=== PATIENT | female | born 1930 | race Caucasian/White ===

== ENCOUNTER 2016-11-13 18:06 | Emergency (ER) | payer MEDICARE ==
[2016-11-13 15:20] LABS: ALBUMIN SERUM 4.8 g/dL (3.5-5.0); ALKALINE PHOSPHATASE 65 U/L (32-92); ALT (SGPT) 8 U/L (10-40); AST (SGOT) 20 U/L (10-42); BASOPHIL% 0.8 % (0-2.5); BILIRUBIN, DIRECT 0.2 mg/dL (0.0-0.2); BILIRUBIN,INDIRECT 0.4 mg/dL (0.0-0.9); BILIRUBIN,TOTAL 0.6 mg/dL (0.2-2.0); BLOOD UREA NITROGEN 18 mg/dL (9-23); CALCIUM SERUM 9.4 mg/dL (8.4-10.2); CARBON DIOXIDE 28 mmol/L (22-31); CHLORIDE 109 mmol/L (100-111); CREATININE SERUM 0.9 mg/dL (0.6-1.4); EOSINOPHIL# 0.1 X10e3 (0-0.7); EOSINOPHIL% 1.9 % (0.0-7.0); GLOM FILT RATE Estimated ABOVE60 mL/min (>60); GLUCOSE FASTING 96 mg/dL (70-110); HEMATOCRIT 40.4 % (35.0-45.0); HEMOGLOBIN 13.2 gm/dL (12.0-16.0); LIPASE 39 U/L (22-51); LYMPHOCYTE# 1.8 X10e3 (1.0-3.5); LYMPHOCYTE% 28.1 % (17.0-45.0); MEAN CELL VOLUME 88.8 FL (83-96); MEAN CORPUSCULAR HGB CONC 32.6 g/dL (30-36); MEAN PLATELET VOLUME 9.1 FL (6.5-11.5); MONOCYTE# 0.4 X10e3 (0-1.0); NEUTROPHIL% 63.2 % (40-75); POTASSIUM 3.9 mmol/L (3.5-5.1); PROTEIN TOTAL SERUM 7.7 g/dL (6.0-8.3); RED BLOOD COUNT 4.54 X10e (3.90-5.30); RED CELL DISTRIBUTION WIDTH 14.3 % (11.0-15.5); SODIUM 142 mmol/L (135-145); WHITE BLOOD COUNT 6.4 X10e3 (4.0-10.5)
[2016-11-13 15:22] LABS: DIFF IND NO; PLATELET COUNT 156 X10e3 (140-420)
[~2016-11-13 18:06] MED LIST: ACETAMINOPHEN PO; AMLODIPINE BESY10 MG PO; ATARAX PO; BACTROBAN22 GM TOP; BENADRYL ANTI-I85 GM TOP; CLINDAMYCIN HC300 MG PO; CLOBETASOL 0.0560 GM TOP; DELTASONE20 MG PO; EUCERIN CREME454 GM TOP; FLORANEX T1 TAB.CHE3 PO; GLIMEPIRIDE1 M1 PO; GLIMEPIRIDE1 MG PO; HYDROXYZINE HCL10 MG PO; HYDROXYZINE HCL25 M1 PO; KEFLEX500 M1 PO; KEFLEX500 M2 PO; KEPPRA500 M2 PO; KEPPRA500 MG PO; LEVETIRACETAM500 MG PO; LOVASTATIN20 M1 PO; LOVASTATIN20 M2 PO; LOVASTATIN20 MG PO; MAGNESIUM400 MG PO; NORVASC PO; PHENERGAN25 MG PO; PREDNISONE PO; PRILOSEC20 MG PO; SARNA TOP; TRIAMCINOLONE A15 G2 TOP; TRIDERM30 GM TOP; TRIDESILON 0.0515 G2 EXT; VALTREX PO; VIBRAMYCIN100 M1 PO; XYZAL5 MG PO; [UNRECOGNIZED DRUG - OTHER] EXT
[2016-11-13 18:14] LABS: URINE SOURCE CLEAN CATCH
[2016-11-13 18:24] LABS: URINE APPEARANCE CLEAR; URINE BILIRUBIN NEG (NEG); URINE BLOOD TRACE (NEG); URINE COLOR YELLOW; URINE GLUCOSE NEG (NEG); URINE KETONE NEG (NEG); URINE LEUKOCYTE ESTERASE TRACE (NEG); URINE NITRATE NEG (NEG); URINE PROTEIN NEG (NEG); URINE UROBILINOGEN 0.2 MG/DL (NEG)
[2016-11-13 18:29] LABS: U HYALINE CASTS AUWI 0-2 /[LPF]; URINE BACTERIA AUWI NEG (NEGATIVE); URINE SQUAMOUS EPITHELIAL CELL NONE SEEN /[HPF]
[2016-11-13 18:32] LABS: CULTURE INDICATED? NO
== END 2016-11-13 18:59 | disposition home or self-care (01) ==
LOC: CED 18:06
PROVIDERS: Emergency Medicine
DX: R10.84 Generalized abdominal pain (principal); I10 Essential (primary) hypertension; Z88.1 Allergy status to other antibiotic agents
CPT/HCPCS: 29125; 29515; 36415; 80048; 80076; 81003; 83690; 85025; 96360; 99284

== ENCOUNTER 2016-11-19 15:58 | Emergency (ER) | payer MEDICARE | END 2016-11-19 17:25 | disposition home or self-care (01) | LOC: CED 15:58 | DX: R10.9 Unspecified abdominal pain (principal); Z88.1 Allergy status to other antibiotic agents | CPT/HCPCS: 99283 ==